=== PATIENT | female | born 2000 | race Caucasian/White ===

== ENCOUNTER → 2021-11-02 23:07 | Observation (INO) | END | disposition home or self-care (01) | LOC: 1NENULAB | PROVIDERS: ADMIT Registered Nurse; ATTEND Registered Nurse ==

== ENCOUNTER → 2021-12-11 02:54 | Observation (INO) | END | disposition home or self-care (01) | LOC: 1NENULAB | PROVIDERS: ADMIT Advanced Practice Midwife; ATTEND Advanced Practice Midwife ==

== ENCOUNTER 2021-12-19 00:20 | Inpatient (IN) ==
[2021-12-18 23:18] LABS: Basophils % 0.1 %; Eosinophils # 0.1 K/mcL (0.0-0.6); Eosinophils % 0.6 %; Hematocrit 30.7 % (35.3-44.9); Immature Granulocytes % 0.5 % (0-4); Lymphocytes # 0.4 K/mcL (0.6-4.6); Mean Corpuscular HGB Conc 32.6 g/dL (31.6-35.5); Mean Corpuscular Volume 82.7 fL (83.0-100.0); Mean Platelet Volume 10.8 fL (9.4-12.4); Monocytes # 0.5 K/mcL (0.0-1.3); Monocytes % 5.5 %; Neutrophils # 7.7 K/mcL (1.6-8.9); Platelet Count 215 K/mcL (140-400); Red Blood Count 3.71 M/mcL (3.82-4.97); Red Cell Distribution Width 14.9 % (11.5-14.5); Segmented Neutrophils % 88.3 %; White Blood Count 8.7 K/mcL (4.3-11.1)
[2021-12-18 23:28] LABS: Creatinine,Urine 143 mg/dL; Protein/Creatinine Ratio,Urine 0.35 mg/mg (0.00-0.20)
[2021-12-18 23:42] LABS: Alanine Aminotransferase 7 Units/L (7-52); Aspartate Amino Transferase 13 Units/L (13-39); BUN/Creatinine Ratio 10 (6-26); Blood Urea Nitrogen 5 mg/dL (6-20); Lactate Dehydrogenase 159 Units/L (140-271); Uric Acid 4.4 mg/dL (2.3-7.6); eGFR For African Americans > 60 (> 60); eGFR For Non-African Americans > 60 (> 60)
[~2021-12-19 00:20] MED LIST: *HR* FentaNYL (PF) 100 MCG/2 ML VIAL IVP PRN; *HR* Labetalol 20 MG/4 ML SYRINGE IVP PRN; *HR* Nalbuphine 10 MG/ML AMPUL IV PRN; Azithromycin 500 MG in 0.9 % Sodium Chloride 250 ML IVPB PRN; Famotidine 20 MG/2 ML VIAL IVP PRN; Lidocaine -MPF 1% 5 ML AMPUL INFILT PRN; Metoclopramide 10 MG/2 ML VIAL IVP PRN; Naloxone 0.4 MG/ML INJ IVP PRN; Ringers Solution, Lactated 1,000 ML IVC SCH
[2021-12-19] MEDS ORDERED: *HR* Labetalol 20 MG/4 ML SYRINGE IVP ONE (00:21)
[2021-12-19] MEDS ORDERED: Calcium Gluconate 1,000 MG/10 ML VIAL IVP PRN ×2 (00:46→18:15)
[2021-12-19] MEDS ORDERED: Magnesium Sulf 20 gm/SW 500mL 4 GM/100 ML BAG IV ONE (00:47)
[2021-12-19] MEDS ORDERED: Metoclopramide 10 MG/2 ML VIAL IVP ONE (00:47)
[2021-12-19] MEDS: Ondansetron 4 MG/2 ML VIAL IVP PRN ×2 (00:58→11:08)
[2021-12-19] MEDS ORDERED: Oxytocin 30 UNIT/503 ML BAG IVC SCH (01:00)
[2021-12-19 01:09] LABS: Amphetamine Screen,Urine Negative ng/mL (Cutoff=1000); Barbiturate Screen,Urine Negative ng/mL (Cutoff=200); Benzodiazepines Screen,Urine Negative ng/mL (Cutoff=200); Cannabinoid Screen,Urine Negative ng/mL (Cutoff = 50); Cocaine Screen,Urine Negative ng/mL (Cutoff= 300); Opiate Screen,Urine Negative ng/mL (Cutoff=300); Phencyclidine Screen,Urine Negative ng/mL (Cutoff=25)
[2021-12-19] MEDS: Magnesium Sulf 20 gm/SW 500mL 20 GM/500 ML IV.SOLN IVC SCH ×2 (02:37→12:10)
[2021-12-19] MEDS ORDERED: EPHEDrine 50 MG/ML VIAL IVP PRN (05:22)
[2021-12-19] MEDS: Epidural Premix (fent/bupiv) 110 ML EP SCH ×2 (06:42→15:57)
[2021-12-19] MEDS ORDERED: Famotidine 20 MG/2 ML VIAL IVP ONE (09:30)
[2021-12-19] MEDS ORDERED: Rho Immune Globulin 1,500 UNIT SYRINGE IM PRN (18:15)
[2021-12-19] MEDS ORDERED: OXYTOCIN/RINGERS LACTATE 10 UNIT/166.6 ML BAG IVC ONE (18:15)
[2021-12-19] MEDS ORDERED: Measles/Mumps/Rubella Vacc 0.5 ML VIAL SQ PRN (18:15)
[2021-12-19] MEDS ORDERED: Benzocaine/Menthol 56 GM AEROSOL SPRAY TP PRN (18:15)
[2021-12-19] MEDS ORDERED: Lanolin 7 G OINT...G. TP PRN (18:15)
[2021-12-19] MEDS ORDERED: Magnesium Sulf 20 gm/SW 500mL 20 GM/500 ML IV.SOLN IVC SCH (18:15)
[2021-12-19] MEDS ORDERED: Ondansetron ODT 4 MG TAB.RAPDIS SL PRN (18:15)
[2021-12-19] MEDS ORDERED: Naloxone 0.4 MG/ML INJ IVP PRN (18:15)
[2021-12-19] MEDS ORDERED: Oxytocin 30 UNIT/503 ML BAG IVC ONE (18:48)
[2021-12-19] MEDS: Ibuprofen 600 MG TABLET PO SCH (20:33)
[2021-12-19] MEDS: Acetaminophen 325 MG TABLET PO SCH (20:33)
[2021-12-20 04:41] LABS: Basophils % 0.1 %; Eosinophils % 0.2 %; Hematocrit 23.1 % (35.3-44.9); Immature Granulocytes % 0.5 % (0-4); Lymphocytes # 0.5 K/mcL (0.6-4.6); Lymphocytes % 3.8 %; Mean Corpuscular HGB Conc 32.5 g/dL (31.6-35.5); Mean Corpuscular Hemoglobin 27.1 pg (28.0-33.3); Mean Corpuscular Volume 83.4 fL (83.0-100.0); Mean Platelet Volume 10.9 fL (9.4-12.4); Monocytes # 0.8 K/mcL (0.0-1.3); Monocytes % 6.1 %; Neutrophils # 11.9 K/mcL (1.6-8.9); Platelet Count 221 K/mcL (140-400); Red Blood Count 2.77 M/mcL (3.82-4.97); Red Cell Distribution Width 15.2 % (11.5-14.5); Segmented Neutrophils % 89.3 %
[2021-12-20 04:45] LABS: Hemoglobin 7.5 g/dL (11.5-15.4); White Blood Count 13.3 K/mcL (4.3-11.1)
[2021-12-20] MEDS: Ibuprofen 600 MG TABLET PO SCH ×2 (05:34→19:51)
[2021-12-20] MEDS: Acetaminophen 325 MG TABLET PO SCH ×2 (05:34→19:51)
[2021-12-20] MEDS ORDERED: Prenatal Vit/FA 1 EACH TABLET PO SCH (09:00)
[2021-12-20] MEDS ORDERED: NON-FORMULARY MEDICATION 1 EACH EACH (Pnv No.95/Ferrous Fum/Folic Ac [Prenatal Caplet] 1 E PO SCH (09:00)
[2021-12-20 17:11] LABS: Basophils % 0.1 %; Eosinophils % 0.2 %; Hematocrit 25.1 % (35.3-44.9); Hemoglobin 8.1 g/dL (11.5-15.4); Immature Granulocytes % 0.7 % (0-4); Lymphocytes # 0.4 K/mcL (0.6-4.6); Lymphocytes % 3.4 %; Mean Corpuscular HGB Conc 32.3 g/dL (31.6-35.5); Mean Corpuscular Volume 83.7 fL (83.0-100.0); Mean Platelet Volume 10.6 fL (9.4-12.4); Monocytes # 0.5 K/mcL (0.0-1.3); Monocytes % 3.7 %; Neutrophils # 11.3 K/mcL (1.6-8.9); Platelet Count 253 K/mcL (140-400); Red Cell Distribution Width 15.5 % (11.5-14.5); Segmented Neutrophils % 91.9 %; White Blood Count 12.3 K/mcL (4.3-11.1)
[2021-12-21] MEDS: Ibuprofen 600 MG TABLET PO SCH (03:46)
[2021-12-21] MEDS: Acetaminophen 325 MG TABLET PO SCH (03:47)
[2021-12-21 07:22] VITALS: BP 127/81; PULSE 78; TEMP 98.1; O2SAT 97
== END 2021-12-21 13:00 | disposition home or self-care (01) | DRG 806 ==
LOC: 1NENULAB → 1NENUOBS 20:27
PROVIDERS: ADMIT Registered Nurse; ATTEND Registered Nurse

== ENCOUNTER 2022-02-03 13:01 | Inpatient (IN) ==
[2022-02-03] MEDS ORDERED: Morphine Sulfate 2 MG/ML SYRINGE IVP ONE (15:22)
[2022-02-03] MEDS ORDERED: Piperacillin/Tazobactam 3.375 GM in 0.9 % Sodium Chloride Mini Bag 100 ML IVPB ONE (15:47)
[2022-02-03 16:20] LABS: Basophils % 0.1 %; Eosinophils # 0.4 K/mcL (0.0-0.6); Eosinophils % 5.1 %; Hematocrit 33.6 % (35.3-44.9); Hemoglobin 9.9 g/dL (11.5-15.4); Immature Granulocytes % 0.4 % (0-4); Lymphocytes # 0.6 K/mcL (0.6-4.6); Lymphocytes % 6.9 %; Mean Corpuscular HGB Conc 29.5 g/dL (31.6-35.5); Mean Corpuscular Hemoglobin 23.5 pg (28.0-33.3); Mean Corpuscular Volume 79.8 fL (83.0-100.0); Mean Platelet Volume 10.6 fL (9.4-12.4); Monocytes # 0.4 K/mcL (0.0-1.3); Monocytes % 5.3 %; Neutrophils # 6.5 K/mcL (1.6-8.9); Platelet Count 311 K/mcL (140-400); Red Blood Count 4.21 M/mcL (3.82-4.97); Red Cell Distribution Width 15.4 % (11.5-14.5); Segmented Neutrophils % 82.2 %; White Blood Count 7.9 K/mcL (4.3-11.1)
[2022-02-03 16:38] LABS: BUN/Creatinine Ratio 12 (6-26); Blood Urea Nitrogen 8 mg/dL (6-20); Calcium 9.4 mg/dL (8.6-10.3); Carbon Dioxide 27 mEq/L (23-29); Chloride 106 mEq/L (98-107); Glucose 85 mg/dL (70-105); Osmolality,Calculated 290 (280-300); Potassium 3.6 mEq/L (3.5-5.1); Sodium 141 mEq/L (136-145); eGFR For African Americans > 60 (> 60); eGFR For Non-African Americans > 60 (> 60)
[2022-02-03] MEDS ORDERED: Naloxone 0.4 MG/ML INJ IVP PRN (16:49)
[2022-02-03] MEDS ORDERED: Ondansetron 4 MG/2 ML VIAL IVP PRN (16:49)
[2022-02-03] MEDS: Sulfamethoxazole/Trimeth DS 1 EACH TABLET PO SCH (20:50)
[2022-02-03] MEDS: Piperacillin/Tazobactam 3.375 GM in 0.9 % Sodium Chloride Mini Bag 100 ML IVPB SCH (23:59)
[2022-02-04] MEDS: *HR* OxyCODONE Immed Rel 5 MG TABLET PO PRN ×2 (00:03→11:47)
[2022-02-04 03:05] LABS: BUN/Creatinine Ratio 13 (6-26); Blood Urea Nitrogen 9 mg/dL (6-20); Calcium 8.5 mg/dL (8.6-10.3); Carbon Dioxide 26 mEq/L (23-29); Chloride 107 mEq/L (98-107); Glucose 83 mg/dL (70-105); Osmolality,Calculated 288 (280-300); Potassium 4.3 mEq/L (3.5-5.1); Sodium 140 mEq/L (136-145); eGFR For African Americans > 60 (> 60); eGFR For Non-African Americans > 60 (> 60)
[2022-02-04 03:12] LABS: INR 1.2; Prothrombin Time 13.6 Seconds (9.4-12.1)
[2022-02-04] MEDS: Piperacillin/Tazobactam 3.375 GM in 0.9 % Sodium Chloride Mini Bag 100 ML IVPB SCH ×3 (08:03→23:42)
[2022-02-04] MEDS: Sulfamethoxazole/Trimeth DS 1 EACH TABLET PO SCH ×2 (08:03→20:49)
[2022-02-04] MEDS: Acetaminophen 325 MG TABLET PO PRN ×2 (17:31→23:45)
[2022-02-05] MEDS: Piperacillin/Tazobactam 3.375 GM in 0.9 % Sodium Chloride Mini Bag 100 ML IVPB SCH ×2 (07:55→16:35)
[2022-02-05] MEDS: Sulfamethoxazole/Trimeth DS 1 EACH TABLET PO SCH ×2 (08:48→21:20)
[2022-02-05] MEDS: Acetaminophen 325 MG TABLET PO PRN ×3 (08:52→22:39)
[2022-02-06] MEDS: Piperacillin/Tazobactam 3.375 GM in 0.9 % Sodium Chloride Mini Bag 100 ML IVPB SCH ×2 (00:04→08:31)
[2022-02-06] MEDS: Acetaminophen 325 MG TABLET PO PRN (08:31)
[2022-02-06] MEDS: Sulfamethoxazole/Trimeth DS 1 EACH TABLET PO SCH (08:32)
[2022-02-06] MEDS: *HR* OxyCODONE Immed Rel 5 MG TABLET PO PRN ×2 (14:09→20:33)
[2022-02-06] MEDS: TRIMETH IVPB SCH (20:20)
[2022-02-06] MEDS: D5 IVPB SCH (20:20)
[2022-02-06] MEDS: WATER IVPB SCH (20:20)
[2022-02-06] MEDS: SULFAMETHOXAZOLE IVPB SCH (20:20)
[2022-02-07] MEDS: *HR* OxyCODONE Immed Rel 5 MG TABLET PO PRN (03:55)
[2022-02-07] MEDS: WATER IVPB SCH ×2 (09:23→19:58)
[2022-02-07] MEDS: D5 IVPB SCH ×2 (09:23→19:58)
[2022-02-07] MEDS: SULFAMETHOXAZOLE IVPB SCH ×2 (09:23→19:58)
[2022-02-07] MEDS: TRIMETH IVPB SCH ×2 (09:23→19:58)
[2022-02-07 11:06] LABS: Basophils % 0.2 %; Eosinophils # 0.6 K/mcL (0.0-0.6); Eosinophils % 9.3 %; Hematocrit 27.7 % (35.3-44.9); Hemoglobin 8.4 g/dL (11.5-15.4); Immature Granulocytes % 0.3 % (0-4); Lymphocytes # 0.6 K/mcL (0.6-4.6); Lymphocytes % 8.6 %; Mean Corpuscular HGB Conc 30.3 g/dL (31.6-35.5); Mean Corpuscular Hemoglobin 23.9 pg (28.0-33.3); Mean Corpuscular Volume 78.7 fL (83.0-100.0); Monocytes # 0.5 K/mcL (0.0-1.3); Monocytes % 7.8 %; Neutrophils # 4.9 K/mcL (1.6-8.9); Platelet Count 271 K/mcL (140-400); Red Blood Count 3.52 M/mcL (3.82-4.97); Red Cell Distribution Width 15.3 % (11.5-14.5); Segmented Neutrophils % 73.8 %; White Blood Count 6.7 K/mcL (4.3-11.1)
[2022-02-07] MEDS: *HR* HYDROcodone/Acet 5/325 mg TABLET PO PRN ×2 (16:54→22:40)
[2022-02-08] MEDS: *HR* OxyCODONE Immed Rel 5 MG TABLET PO PRN ×3 (07:31→21:55)
[2022-02-08] MEDS ORDERED: *HR* FentaNYL (PF) 100 MCG/2 ML VIAL ONE (08:56)
[2022-02-08] MEDS ORDERED: *HR* Succinylcholine 200 MG/10 ML VIAL IVP ONE (08:56)
[2022-02-08] MEDS ORDERED: *HR* Midazolam HCl 5 MG/5 ML VIAL IVP ONE (08:56)
[2022-02-08] MEDS ORDERED: Ondansetron 4 MG/2 ML VIAL ONE (08:56)
[2022-02-08] MEDS ORDERED: Lidocaine -MPF 2% 5 ML VIAL ONE (08:56)
[2022-02-08] MEDS ORDERED: *HR* Propofol 200 MG/20 ML VIAL IVP ONE (08:56)
[2022-02-08] MEDS ORDERED: *HR* HYDROmorphone PF 0.5 MG/0.5 ML SYRINGE IVP PRN (09:28)
[2022-02-08] MEDS ORDERED: Ondansetron 4 MG/2 ML VIAL IVP PRN ×2 (09:28→12:38)
[2022-02-08] MEDS ORDERED: Promethazine 6.25 MG in Water for inj. (sterile) 20 ML IVPB PRN (09:28)
[2022-02-08] MEDS ORDERED: *HR* OxyCODONE Immed Rel 5 MG TABLET PO PRN (09:28)
[2022-02-08] MEDS ORDERED: Acetaminophen IV 1,000 MG/100 ML BAG IVPB ONE ×2 (10:14→10:29)
[2022-02-08] MEDS: SULFAMETHOXAZOLE IVPB SCH ×2 (10:25→21:55)
[2022-02-08] MEDS: D5 IVPB SCH ×2 (10:25→21:55)
[2022-02-08] MEDS: WATER IVPB SCH ×2 (10:25→21:55)
[2022-02-08] MEDS: TRIMETH IVPB SCH ×2 (10:25→21:55)
[2022-02-08] MEDS ORDERED: Acetaminophen 325 MG TABLET PO PRN (12:38)
[2022-02-08] MEDS ORDERED: Naloxone 0.4 MG/ML INJ IVP PRN (12:38)
[2022-02-08] MEDS: Prenatal Vit/FA 1 EACH TABLET PO SCH (12:56)
[2022-02-09] MEDS: *HR* HYDROcodone/Acet 5/325 mg TABLET PO PRN ×2 (03:32→09:57)
[2022-02-09] MEDS: Prenatal Vit/FA 1 EACH TABLET PO SCH (09:38)
[2022-02-09] MEDS: D5 IVPB SCH (09:52)
[2022-02-09] MEDS: SULFAMETHOXAZOLE IVPB SCH (09:52)
[2022-02-09] MEDS: WATER IVPB SCH (09:52)
[2022-02-09] MEDS: TRIMETH IVPB SCH (09:52)
[2022-02-09 11:43] VITALS: BP 114/60; PULSE 74; TEMP 98.5; O2SAT 96
== END 2022-02-09 14:00 | disposition home or self-care (01) | DRG 601 ==
LOC: EMEROOARM 13:01 → 3NENU 13:01 → SUATTDRO 17:20 → 3NENU 17:52
PROVIDERS: ADMIT Internal Medicine; ATTEND Internal Medicine